=== PATIENT | female | born 1950 | race Two or more races ===

== ENCOUNTER 2021-11-22 16:32 | Emergency (ER) | payer OTHER, MEDICAID ==
[~2021-11-22] VITALS: Ht 175.3 cm; Wt 63.0 kg
[~2021-11-22 16:32] MED LIST: LOSA-69 PO
[2021-11-23] MEDS ORDERED: LABETALOL HCL 5 MG/ML 4ML SYRINGE IV ONE (04:00)
[2021-11-23 04:25] LABS: Basophils # (auto) 0.1 10 ^3/uL (0-0.2); Basophils % (auto) 0.8 % (0.0-2.0); Eosinophils # (auto) 0.3 10 ^3/uL (0-0.8); Eosinophils % (auto) 3.7 % (0.0-7.0); Hematocrit 40.2 % (36.0-46.0); Lymphocytes # (auto) 2.2 10 ^3/uL (0.4-5.4); Lymphocytes % (auto) 32.5 % (10.0-50.0); Mean Corpuscular Hemoglobin 29.7 pg (28.0-32.0); Mean Corpuscular Hgb Conc. 34.8 g/dL (32.0-36.0); Mean Corpuscular Volume 85.2 fL (80.0-100.0); Monocytes # (auto) 0.6 10 ^3/uL (0-1.3); Monocytes % (auto) 9.5 % (0.0-12.0); Neutrophils # (auto) 3.6 10 ^3/uL (1.6-8.6); Neutrophils % (auto) 53.5 % (37.0-80.0); Nucleated Red Blood Cells % 0.1 %; Red Blood Cells 4.72 10^6/uL (4.0-5.20); Red Cell Distribution Width 12.9 % (11.8-14.3); White Blood Cell 6.8 10^3/uL (4.4-10.8)
[2021-11-23 04:44] LABS: Albumin 3.2 g/dL (3.4-5.0); Calcium 9.1 mg/dL (8.5-10.1); Potassium 3.7 mmol/L (3.5-5.1)
[2021-11-23 04:47] LABS: BUN/Creatinine Ratio 26.6; Bilirubin, Total 0.4 mg/dL (0.2-1.0); Total Protein 7.3 g/dL (6.4-8.2)
[2021-11-23] MEDS ORDERED: IOHEXOL 350 MG/ML 100ML IJ ONE (06:46)
[2021-11-23 10:00] VITALS: BP 147/89
[2021-11-23] MEDS ORDERED: ACETAMINOPHEN 325 MG TAB PO ONE (11:45)
== END 2021-11-23 12:08 | disposition home or self-care (01) ==
LOC: ER 16:32
DX: H53.8 Other visual disturbances (principal); I10 Essential (primary) hypertension; Z90.49 Acquired absence of other specified parts of digestive tract; Z79.899 Other long term (current) drug therapy
CPT/HCPCS: 36415; 70496; 70498; 80053; 85025; 96374; 99285; J3490; Q9967

== ENCOUNTER 2021-11-25 09:23 | Inpatient (IN) | payer OTHER, MEDICAID ==
[~2021-11-25] VITALS: Ht 157.5 cm; Wt 59.7 kg
[2021-11-25] MEDS ORDERED: ACCU-CHEK COMFORT CURVE STRIP VI ONE (09:45)
[2021-11-25] MEDS ORDERED: MECLIZINE HCL 25 MG TAB PO ONE (10:15)
[2021-11-25 10:38] LABS: Basophils # (auto) 0.1 10 ^3/uL (0-0.2); Basophils % (auto) 0.9 % (0.0-2.0); Eosinophils # (auto) 0.2 10 ^3/uL (0-0.8); Eosinophils % (auto) 3.4 % (0.0-7.0); Hematocrit 39.3 % (36.0-46.0); Hemoglobin 13.8 g/dL (12.2-16.2); Lymphocytes # (auto) 1.8 10 ^3/uL (0.4-5.4); Lymphocytes % (auto) 28.7 % (10.0-50.0); Mean Corpuscular Hemoglobin 30.2 pg (28.0-32.0); Mean Corpuscular Volume 86.1 fL (80.0-100.0); Monocytes # (auto) 0.6 10 ^3/uL (0-1.3); Monocytes % (auto) 9.1 % (0.0-12.0); Neutrophils # (auto) 3.6 10 ^3/uL (1.6-8.6); Neutrophils % (auto) 57.9 % (37.0-80.0); Nucleated Red Blood Cells % 0.1 %; Red Blood Cells 4.56 10^6/uL (4.0-5.20); Red Cell Distribution Width 12.9 % (11.8-14.3); White Blood Cell 6.3 10^3/uL (4.4-10.8)
[2021-11-25 10:52] LABS: Partial Thromboplastin Time 29.6 sec (23.6-33.0)
[2021-11-25 10:55] LABS: Albumin 3.1 g/dL (3.4-5.0); Calcium 9.2 mg/dL (8.5-10.1); Magnesium 2.4 mg/dL (1.6-2.6); Potassium 3.8 mmol/L (3.5-5.1)
[2021-11-25 10:58] LABS: Bilirubin, Total 0.4 mg/dL (0.2-1.0); Total Protein 6.9 g/dL (6.4-8.2)
[2021-11-25 13:48] LABS: Urine Bacteria NONE SEEN /hpf (None Seen); Urine Blood TRACE /uL (Negative); Urine Specific Gravity 1.005 (1.001-1.035); Urine WBC <1 /hpf (0 - 5)
[2021-11-25 14:05] LABS: Alcohol, Urine < 3.0 mg/dL (0-10); Amphetamine Screen, Urine NEGATIVE (NEGATIVE); Barbiturate Scree,Urine NEGATIVE (NEGATIVE); Benzodiazephine Screen, Urine NEGATIVE (NEGATIVE); Cannabinoid Screen, Urine NEGATIVE (NEGATIVE); Cocaine Screen, Urine NEGATIVE (NEGATIVE); Opiate Scree,Urine NEGATIVE (NEGATIVE); Phencyclidine Screen, Urine NEGATIVE (NEGATIVE)
[2021-11-25] MEDS ORDERED: SODIUM CHLORIDE 0.9% 1,000 ML IV ONE (15:45)
[2021-11-25] MEDS ORDERED: ONDANSETRON HCL 4 MG/2 ML VIAL IV PRN (15:45)
[2021-11-25] MEDS ORDERED: hydrALAZINE HCL 20 MG/ML VL IV PRN (15:45)
[2021-11-25] MEDS: hydrALAZINE HCL 20 MG/ML VL IV PRN (15:53)
[2021-11-25 17:25] VITALS: BP 147/67
[2021-11-25 17:53] VITALS: BP 147/67
[2021-11-25 20:00] VITALS: BP 135/88
[2021-11-25 21:41] VITALS: BP 135/88
[2021-11-26 04:25] VITALS: BP 152/86
[2021-11-26 05:47] LABS: Basophils # (auto) 0 10 ^3/uL (0-0.2); Basophils % (auto) 0.6 % (0.0-2.0); Eosinophils # (auto) 0.3 10 ^3/uL (0-0.8); Hemoglobin 14.8 g/dL (12.2-16.2); Lymphocytes # (auto) 1.8 10 ^3/uL (0.4-5.4); Lymphocytes % (auto) 33.6 % (10.0-50.0); Mean Corpuscular Hemoglobin 30.2 pg (28.0-32.0); Mean Corpuscular Hgb Conc. 35.2 g/dL (32.0-36.0); Mean Corpuscular Volume 85.7 fL (80.0-100.0); Monocytes # (auto) 0.5 10 ^3/uL (0-1.3); Monocytes % (auto) 9.6 % (0.0-12.0); Neutrophils # (auto) 2.8 10 ^3/uL (1.6-8.6); Neutrophils % (auto) 51.2 % (37.0-80.0); Red Blood Cells 4.89 10^6/uL (4.0-5.20); White Blood Cell 5.4 10^3/uL (4.4-10.8)
[2021-11-26 06:01] LABS: Albumin 3.3 g/dL (3.4-5.0); BUN/Creatinine Ratio 28.4; Calcium 9.2 mg/dL (8.5-10.1); Potassium 3.8 mmol/L (3.5-5.1)
[2021-11-26 06:03] LABS: Bilirubin, Total 0.6 mg/dL (0.2-1.0); Total Protein 7.2 g/dL (6.4-8.2)
[2021-11-26 08:00] VITALS: BP 157/99
[2021-11-26 09:00] VITALS: BP 157/99
[2021-11-26] MEDS: hydrALAZINE HCL 20 MG/ML VL IV PRN ×2 (09:38→12:23)
[2021-11-26] MEDS: ENOXAPARIN SOD 40 MG/0.4 ML SYRINGE SC SCH (09:39)
[2021-11-26 13:00] VITALS: BP 143/73
[2021-11-26 17:00] VITALS: BP 141/68
[2021-11-26 22:00] VITALS: BP 130/73
[2021-11-27 05:00] VITALS: BP 140/84
[2021-11-27 05:57] LABS: Basophils # (auto) 0.1 10 ^3/uL (0-0.2); Basophils % (auto) 0.9 % (0.0-2.0); Eosinophils # (auto) 0.2 10 ^3/uL (0-0.8); Eosinophils % (auto) 3.2 % (0.0-7.0); Hematocrit 44.7 % (36.0-46.0); Hemoglobin 15.6 g/dL (12.2-16.2); Lymphocytes # (auto) 2.2 10 ^3/uL (0.4-5.4); Lymphocytes % (auto) 30.4 % (10.0-50.0); Mean Corpuscular Hemoglobin 30.1 pg (28.0-32.0); Mean Corpuscular Hgb Conc. 34.8 g/dL (32.0-36.0); Mean Corpuscular Volume 86.4 fL (80.0-100.0); Monocytes # (auto) 0.8 10 ^3/uL (0-1.3); Monocytes % (auto) 11.3 % (0.0-12.0); Neutrophils # (auto) 3.9 10 ^3/uL (1.6-8.6); Neutrophils % (auto) 54.2 % (37.0-80.0); Nucleated Red Blood Cells % 0.2 %; Red Blood Cells 5.18 10^6/uL (4.0-5.20); Red Cell Distribution Width 13.1 % (11.8-14.3); White Blood Cell 7.1 10^3/uL (4.4-10.8)
[2021-11-27 06:08] LABS: Albumin 3.2 g/dL (3.4-5.0); Calcium 9.8 mg/dL (8.5-10.1)
[2021-11-27 06:10] LABS: BUN/Creatinine Ratio 25.6
[2021-11-27 06:12] LABS: Bilirubin, Total 0.6 mg/dL (0.2-1.0); Total Protein 7.4 g/dL (6.4-8.2)
[2021-11-27 08:00] VITALS: BP 134/69
[2021-11-27 08:30] VITALS: BP 148/74
[2021-11-27] MEDS: ENOXAPARIN SOD 40 MG/0.4 ML SYRINGE SC SCH (09:29)
[2021-11-27] MEDS: hydrALAZINE HCL 20 MG/ML VL IV PRN (09:29)
[2021-11-27 12:30] VITALS: BP 134/66
[2021-11-27 12:43] VITALS: BP 134/66
== END 2021-11-27 14:40 | disposition home or self-care (01) | DRG 312 ==
LOC: ER 09:23 → TELE 15:41 → TELE-WESTW 17:26
PROVIDERS: ADMIT Registered Nurse; ATTEND Registered Nurse
DX: R55 Syncope and collapse (principal); Z20.822 Contact with and (suspected) exposure to COVID-19; I12.9 Hypertensive chronic kidney disease with stage 1 through stage 4 chronic kidney disease, or unspecified chronic kidney disease; K76.9 Liver disease, unspecified; N18.2 Chronic kidney disease, stage 2 (mild); Z83.3 Family history of diabetes mellitus; Z90.49 Acquired absence of other specified parts of digestive tract
CPT/HCPCS: 36415; 70450; 70551; 71045; 80053; 80307; 81001; 83605; 83735; 84484; 85025; 85610; 85730; 87040; 93005; 93306; 93886; 96361; 96374; G0378

== ENCOUNTER 2024-12-05 16:15 | Emergency (ER) | payer OTHER ==
[~2024-12-05] VITALS: Ht 144.8 cm; Wt 59.6 kg
[~2024-12-05 16:15] MED LIST changes: +LOSA-534 PO; -LOSA-69 PO
--- NOTE | 2024-12-05 16:26 | ED.PDOC ---
Musculoskeletal HPI Comments 74 y/o F, presents to the ED for CC of upper extremity. Patient states, she has been experiencing left wrist pain [id number] which worsened, today (12/05/24) following hitting on his back. Patient relays, that she was opening a bottle of vinegar [id number] ago and pain never went away. No other symptoms or modifying factors present at this time. Chief Complaint: Upper Extremity Time Seen by MD: 16:30 Primary Care Provider: unknown Reviewed Notes: Nurses Notes, Medications, Allergies Allergies: Coded Allergies: NO KNOWN ALLERGIES (Unverified , 02/19/15) Home Meds Reported Medications Losartan Potassium (Losartan Potassium) 50 Mg Tab, 1 TAB PO DAILY 08/05/15 Information Source: Patient Mode of Arrival: Ambulatory Location: Left Extremity Location: Wrist Timing: Months Prehospital treatment: None Severity: Moderate Able to Move Extremity: Yes Pain: Moderate Mechanism: Hyperflexion Circumstances: Altercation Onset of Symptoms: After Trauma Symptoms: Swelling, Pain DVT Risk Factors: NONE Last Tetanus: Unknown Associated signs and symptoms: Wrist pain Past Medical History PAST MEDICAL HISTORY: HTN, Liver Surgical History: Cholecystectomy, [employer] History: No Pertinent [employer] History Family History Family History: Unobtainable Social History Smoker: Non-Smoker Alcohol: Denies ETOH Use Drugs: Denies Drug Use Lives In: Home Constitutional: denies: chills, diaphoresis, fatigue, fever, malaise, sweats, weakness, others EENTM: denies: blurred vision, double vision, ear bleeding, ear discharge, ear drainage, ear pain, ear ringing, eye pain, eye redness, hearing loss, mouth pain, mouth swelling, nasal discharge, nose bleeding, nose congestion, nose pain, photophobia, tearing, throat pain, throat swelling, voice changes, others Respiratory: denies: cough, hemoptysis, orthopnea, SOB at rest, shortness of breath, SOB with excertion, stridor, wheezing, others Cardiovascular: denies: chest pain, dizzy spells, diaphoresis, Dyspnea on exertion, edema, irregular heart beat, left arm pain, lightheadedness, palpitations, PND, syncope, others Gastrointestinal: denies: abdomen distended, abdominal pain, blood streaked bowels, constipated, diarrhea, dysphagia, difficulty swallowing, hematemesis, melena, nausea, poor appetite, poor fluid intake, rectal bleeding, rectal pain, vomiting, others Genitourinary: denies: abnormal vagina bleeding, burning, dyspareunia, dysuria, flank pain, frequency, hematuria, incontinence, pain, , vagina discharge, urgency, others Neurological: denies: dizziness, fainting, headache, left sided numbness, left sided weakness, numbness, paresthesia, pre-existing deficit, right sided numbness, right sided weakness, seizure, speech problems, tingling, tremors, weakness, others Musculoskeletal: reports: others (left wrist pain); denies: back pain, gout, joint pain, joint swelling, muscle pain, muscle stiffness, neck pain Integumetry: denies: bruises, change in color, change in hair/nails, dryness, laceration, lesions, lumps, rash, wounds, others Allergic/Immunocompromised: denies: Difficulty Healing, Frequent Infections, Hives, Itching, others Hematologic/Lymphatic: denies: anemia, blood clots, easy bleeding, easy bruising, swollen glands, others Endocrine: denies: excessive hunger, excessive sweating, excessive thirst, excessive urination, flushing, intolerance to cold, intolerance to heat, unexplained weight gain, unexplained weight loss, others Psychiatric: denies: anxiety, bipolar disorder, depression, hopeless, panic disorder, schizophrenia, sleepless, suicidal, others All Other Systems: Reviewed and Negative Physical Exam General Appearance: Moderate Distress ([id number] distress due to left wrist pain concerns.), Normal HEENT: Normal ENT Inspection, Pharynx Normal, TMs Normal Neck: Full Range of Motion, Non-Tender, Normal, Normal Inspection Respiratory: Chest Non-Tender, Lungs Clear, No Accessory Muscle Use, No Respiratory Distress, Normal Breath Sounds Cardiovascular: No Edema, No JVD, No Murmur, No Gallop, Normal Peripheral Pulses, Regular Rate/Rhythm Breast Exam: Deferred Gastrointestinal: No Organomegaly, Non Tender, No Pulsatile Mass, Normal Bowel Sounds, Soft Genitalia: Deferred Pelvic: Deferred Rectal: Deferred Extremities: Other (Left wrist reveals mild edema on dorsal aspect throughout. Moderate reduced range of motion. No definitive crepitus. Distal neurovascularly intact.) Neurologic: Alert, No Motor Deficits, Normal Affect, Normal Mood, No Sensory Deficits Cerebellar Function: Normal Reflexes: Normal Skin: Dry, Normal Color, Warm Lymphatic: No Adenopathy Was a procedure done? Was a procedure done?: No Differential Diagnosis EXT Differential Diagnosis: Fracture, Sprain, Dislocation, Strain X-Ray, Labs, Meds, VS Vital Signs Date Time Temp Pulse Resp B/P (MAP) Pulse Ox O2 Delivery O2 Flow Rate FiO2 12/05/24 16:20 99.3 83 18 162/87 (112) 96 99.3 [place] [address] Ph: [phone] DIAGNOSTIC IMAGING Diagnostic Imaging Report : [id number] Signed PATIENT: VALERIE GAYLECT: [id number] UNIT: [id number] : 1950 LOC: ER ROOM / BED: / AGE / SEX: 74 / F ADM STATUS: REG ER SERVICE 37 ORDERING PHYSICIAN: KELSEY MOON PAC PROCEDURE(s): LWRI - L WRIST 3+ VIEW XRAY REASON: wrist pain ORDER NUMBER(s): [id number], ACCESSION NUMBER(s): [id number] EXAM: XY L WRIST 3+ VIEW XRAY CLINICAL HISTORY: wrist pain COMPARISON: None TECHNIQUE: XY L WRIST 3+ VIEW XRAY Findings/Impression: 3 views of the left wrist. There is no evidence of an acute fracture, dislocation, blastic, or lytic lesions. No radiopaque foreign bodies. No joint effusion. Mild soft tissue edema. ATED BY: LINDA MARTIN DO DICTATED DATE/TIME: 12/05/241699 SIGNED BY: LINDA MARTIN DO SIGNED DATE/TIME: 12/05/241699 CC: X-Ray, Labs, Meds, VS Comment All studies performed the ED were evaluated by me personally. Imaging studies were unremarkable for any acute fractures. Patient sustained a wrist sprain. Carlos wrap was provided for the patient at discharge. Advised anti-inflammatory meds and ice therapy. Time of 1ST Reevaluation: 17:35 Reevaluation 1ST: Improved Consultation: PCP Patient Education/Counseling: Diagnosis, Treatment Family Education/Counseling: Diagnosis, Treatment, No Family Present Departure 1 Departure Time of Disposition: 17:36 Impression: Primary Impression: Wrist sprain Disposition: 01 HOME / SELF CARE / HOMELESS Condition: Stable Additional Instructions: Advised patient utilize pain medication as needed for symptomatic relief as well as ice therapy. Patient should utilize the Carlos wrap as long as it aids in the healing process. e-Prescriptions Ibuprofen Micronized (Ibuprofen) 800 Mg Tab 800 MG PO Q8HP PRN, #20 TAB Prov: KELSEY MOON PAC 12/05/24 Discharged With: Self, Spouse Critical Care Note Critical Care Time?: No Stability Stability form required: No Heart Score Heart Score: Heart Score Response (Comments) Value History N/A 0 EKG N/A 0 Age N/A 0 Risk Factors N/A 0 Troponin N/A 0 Total 0 I personally scribed for KELSEY MOON PAC ([email or web address]) on 12/05/24 at 16:26. Electronically submitted by Sujata Rollins ([email or web address]). I personally scribed for KELSEY MOON PAC ([email or web address]) on 12/05/24 at 16:46. Electronically submitted by Sujata Rollins ([employer]). I personally scribed for KELSEY MOON PAC ([email or web address]) on 12/05/24 at 17:08. Electronically submitted by Sujata Rollins ([employer]). KELSEY MOON PAC December 05, 2024 16:26
--- NOTE | 2024-12-05 17:02 | DVH ---
EXAM: XY L WRIST 3+ VIEW XRAY CLINICAL HISTORY: wrist pain COMPARISON: None TECHNIQUE: XY L WRIST 3+ VIEW XRAY Findings/Impression: 3 views of the left wrist. There is no evidence of an acute fracture, dislocation, blastic, or lytic lesions. No radiopaque foreign bodies. No joint effusion. Mild soft tissue edema.
[2024-12-05] MEDS ORDERED: IBUP-1455 PO (17:37)
[2024-12-05 18:23] VITALS: BP 154/91; PULSE 74; RESP 16; TEMP 98.7; O2SAT 94
== END 2024-12-05 18:27 | disposition home or self-care (01) ==
LOC: ER 16:19
DX: S63.592A Other specified sprain of left wrist, initial encounter (principal); I10 Essential (primary) hypertension; Z79.899 Other long term (current) drug therapy; Z90.49 Acquired absence of other specified parts of digestive tract; Z98.890 Other specified postprocedural states; W51.XXXA Accidental striking against or bumped into by another person, initial encounter; Y93.89 Activity, other specified; Y92.89 Other specified places as the place of occurrence of the external cause; Y99.8 Other external cause status
CPT/HCPCS: 73110